=== PATIENT | male | born 1955 | race Caucasian/White ===

== ENCOUNTER → 2016-09-26 13:00 | Outpatient (CLI) | payer MEDICAID ==
[2016-04-06 13:00] VITALS: BMI 23.2
[~2016-09-26 13:00] MED LIST: PERCOCET 10/3251 TA1 PO
== END | disposition home or self-care (01) ==
LOC: D.CT 13:00
DX: R22.1 Localized swelling, mass and lump, neck (principal); Z85.21 Personal history of malignant neoplasm of larynx